=== PATIENT | female | born 1955 | race Caucasian/White ===

== ENCOUNTER 2025-08-30 08:45 | Outpatient (CLI) | payer MEDICARE | END 2025-08-30 08:46 | disposition home or self-care (01) | LOC: PET 08:45 | PROVIDERS: ATTEND Family Medicine | DX: Z13.9 Encounter for screening, unspecified (principal); R91.8 Other nonspecific abnormal finding of lung field; S22.32XD Fracture of one rib, left side, subsequent encounter for fracture with routine healing; J38.01 Paralysis of vocal cords and larynx, unilateral | CPT/HCPCS: 78816; A9552 ==